=== PATIENT | male | born 1985 | race Caucasian/White ===

== ENCOUNTER 2019-09-23 19:45 | Inpatient (IN) | payer OTHER ==
[2019-09-23 20:10] VITALS: BMI 20.2
--- NOTE | 2019-09-23 20:32 | HP ---
COWS - Scale Resting Pulse: 0= [place] 80 or Below Sweatin=Flushed/Facial Moisture Restless Observation: 0= Sits Still Pupil Size: 0= Normal to Room Light Bone or Joint Aches: 4=Acute Joint/Muscle Pain Runny Nose/ Eye Tearin= Runny Nose/Eyes GI Upset > 30mins: 1= Stomach Cramp Tremor Observation: 2= Slight Tremor Visible Yawning Observation: 0= None Anxiety or Irritability: 2=Irritable/Anxious Goose Flesh Skin: 0=Smooth Skin COWS Score: 13 CIWA Score Nausea/Vomitin Muscle Tremors: 2 Anxiety: 3 Agitation: 2 Paroxysmal Sweats: 2 Orientation: 1-Uncertain about Date Tacttile Disturbances: 0-None Auditory Disturbances: 0-None Visual Disturbances: 0-None Headache: 2-Mild CIWA-Ar Total Score: 14 - Admission Criteria [facility] Guidelines: Admission for Medically Managed Detox: Requires at least one of the followin. CIWA greater than 12 2. Seizures within the past 24 hours 3. Delirium tremens within the past 24 hours 4. Hallucinations within the past 24 hours 5. Acute intervention needed for co occurring medical disorder 6. Acute intervention needed for co occurring psychiatric disorder 7. Severe withdrawal that cannot be handled at a lower level of care (continued vomiting, continued diarrhea, abnormal vital signs) requiring intravenous medication and/or fluids 8. Admission ROS [facility] - [facility] Chief Complaint: Seeking admission to detox from heroin Allergies/Adverse Reactions: Allergies Allergy/AdvReac Type Severity Reaction Status Date / Time No Known Allergies Allergy Verified 09/23/19 20:27 History of Present Illness: 34 years old male with 2 years of heroin dependence and 14 years of alcohol dependence is seeking admission to detox. This his first admission to [facility] and he his first detoxification. He uses 10 bags of heroin and 1 liter of Valerie / 2 bottles of 12oz. beer daily. He has medical history of heart murmur, scoliosis, denies psych. history and suicide attempt and suicidal ideation a this time. He is unemployed, lives with his mother and denies legal issues. He reports drug overdose in June 2019. Exam Limitations: No Limitations - Ebola screening Have you traveled outside of the country in the last 21 days: No Have you had contact with anyone from an Ebola affected area: No Have you been sick,other than usual withdrawal symptoms: No Do you have a fever: No - Review of Systems Constitutional: Chills, Malaise, Night Sweats, Changes in sleep EENT: reports: Nose Congestion Respiratory: reports: No Symptoms reported Cardiac: reports: No Symptoms Reported GI: reports: Nausea, Poor Appetite, Poor Fluid Intake, Abdominal cramping : reports: No Symptoms Reported Musculoskeletal: reports: Back Pain, Muscle Pain Integumentary: reports: Dryness, Flushing Neuro: reports: Tremors Endocrine: reports: No Symptoms Reported Hematology: reports: No Symptoms Reported Psychiatric: reports: Mood/Affect Appropiate, Anxious Other Systems: Reviewed and Negative Patient History - Patient Medical History Hx Anemia: No Hx Asthma: No Hx Chronic Obstructive Pulmonary Disease (COPD): No Hx Cardiac Disorders: Yes (Heart murmur) Hx Congestive Heart Failure: No Hx Hypertension: No Hx Hypercholesterolemia: No Hx Pacemaker: No HX Cerebrovascular Accident: No Hx Seizures: No Hx Diabetes: No Hx Gastrointestinal Disorders: No Hx Liver Disease: No Hx Genitourinary Disorders: No Hx Sexually Transmitted Disorders: No Hx Renal Disease (ESRD): No Hx Thyroid Disease: No Hx Human Immunodeficiency Virus (HIV): No (Negative 2020) Hx Hepatitis C: No Hx Depression: No Hx Suicide Attempt: No (Denies suicidal ideation at this tiome) Hx Bipolar Disorder: No Hx Schizophrenia: No - Patient Surgical History Past Surgical History: No - PPD History Previous Implant?: Yes Documented Results: Negative w/o proof Implanted On Prior [facility] Admission?: No PPD to be Administered?: Yes - Reproductive History Patient is a Female of Child Bearing Age (11 -55 yrs old): No (male) - Smoking Cessation Smoking history: Current every day smoker Have you smoked in the past 12 months: Yes Aproximately how many cigarettes per day: 20 Hx Chewing Tobacco Use: No Initiated information on smoking cessation: Yes 'Breaking Loose' booklet given: 09/23/19 - Substance & Tx. History Hx Alcohol Use: No Hx Substance Use: Yes Substance Use Type: Heroin Hx Substance Use Treatment: No - Substances abused Heroin Substance route: Oral Frequency: Daily Amount used: 10 bags of heroin Age of first use: 32 Date of last use: 09/23/19 Alcohol Substance route: Oral Frequency: Daily Amount used: 1 liter of Valerie and 2 bottles of 12 oz. beer Age of first use: 20 Date of last use: 09/23/19 Admission Physical Exam [facility] - Vital Signs Vital Signs: Vital Signs - 24 hr 09/23/19 20:09 Temperature 98.4 F Pulse Rate 68 Respiratory 18 Rate Blood Pressure 122/80 - Physical General Appearance: Yes: Moderate Distress, Tremorous, Irritable, Anxious HEENTM: Yes: Within Normal Limits Respiratory: Yes: Lungs Clear, Normal Breath Sounds, No Respiratory Distress Neck: Yes: Within Normal Limits Breast: Yes: Breast Exam Deferred Cardiology: Yes: Within Normal Limits Abdominal: Yes: Normal Bowel Sounds, Soft Genitourinary: Yes: Within Normal Limits Back: Yes: Normal Inspection Musculoskeletal: Yes: Within Normal Limits Extremities: Yes: Tremors Neurological: Yes: Within Normal Limits Integumentary: Yes: Warm Lymphatic: Yes: Within Normal Limits - Diagnostic (1) Opioid dependence with withdrawal Current Visit: Yes Status: Acute (2) Alcohol dependence with withdrawal, uncomplicated Current Visit: Yes Status: Acute (3) Nicotine dependence Current Visit: Yes Status: Acute (4) Heart murmur Current Visit: Yes Status: Chronic (5) Scoliosis Current Visit: Yes Status: Chronic Qualifiers: Scoliosis type: unspecified scoliosis Cleared for Admission [facility] - Detox or Rehab [facility] Level of Care: Medically Managed Detox Regimen/Protocol: Methadone/Librium Claeared for Rehab Admission: No Breathalyzer - Breathalyzer Breathalyzer: 0 Urine Drug Screen - Test Device Lot number: [id number] Expiration date: 03/15/21 - Control Is test valid?: Yes - Results Drug screen NEGATIVE: No Urine drug screen results: THC-Marijuana, BRADEN-Cocaine, FEN-Fentanyl, MOP-Opiates Inpatient Rehab Admission - Rehab Decision to Admit Inpatient rehab admission?: No
[2019-09-23] MEDS ORDERED: ACETAMINOPHEN 325 MG TABLET (FP) PO PRN ×2 (20:44)
[2019-09-23] MEDS ORDERED: MAGNESIUM HYDROX 2400MG/30ML ORAL SUSPENSION 30 ML CUP PO PRN (20:44)
[2019-09-23] MEDS ORDERED: MAG HYDROX/AL HYDROX/SIMETH 30 ML UNIT-DOSE CUP PO PRN (20:44)
[2019-09-23] MEDS ORDERED: MAGNESIUM CITRATE 300 ML BOTTLE PO PRN (20:44)
[2019-09-23] MEDS ORDERED: cloNIDine HCL 0.1 MG TABLET PO PRN (20:44)
[2019-09-23] MEDS ORDERED: chlordiazePOXIDE HCL 10 MG CAPSULE PO PRN (20:44)
[2019-09-23] MEDS ORDERED: BISMUTH SUBSALICYLATE 524 MG/30 ML UD PO PRN (20:44)
[2019-09-23] MEDS ORDERED: NICOTINE POLACRILEX 2 MG GUM BUC PRN (20:44)
[2019-09-23] MEDS ORDERED: METHOCARBAMOL 500 MG TABLET PO PRN (20:44)
[2019-09-23] MEDS ORDERED: MENTHOL/PHENOL 1 EACH UD MM PRN (20:44)
[2019-09-23] MEDS ORDERED: ONDANSETRON *ODT* 4 MG TABLET SL PRN (20:44)
[2019-09-23] MEDS ORDERED: IBUPROFEN 400 MG TABLET (FP) PO PRN (20:44)
[2019-09-23] MEDS ORDERED: METHADONE HCL 10 MG TABLET (FOR DETOX USE ONLY) PO ONE (21:45)
[2019-09-23] MEDS: chlordiazePOXIDE HCL 25 MG CAPSULE PO SCH (23:04)
[2019-09-23] MEDS: THIAMINE HCL 100 MG TABLET (FP) PO SCH (23:04)
[2019-09-23] MEDS: MELATONIN 5 MG TABLETS PO SCH (23:09)
[2019-09-24] MEDS: chlordiazePOXIDE HCL 25 MG CAPSULE PO SCH ×3 (05:19→21:56)
--- NOTE | 2019-09-24 09:24 | EKG ---
Test Reason : Blood Pressure : / mmHG Vent. Rate : 057 BPM Atrial Rate : 057 BPM P-R Int : 174 ms QRS Dur : 102 ms QT Int : 410 ms P-R-T Axes : 047 062 046 degrees QTc Int : 399 ms SINUS BRADYCARDIA OTHERWISE NORMAL ECG NO PREVIOUS ECGS AVAILABLE Confirmed by Parker Breaux MD ([id number]) on 09/24/2019 9:23:36 AM Referred By: WENDIE HUNTER Confirmed By:Parker Breaux MD
[2019-09-24] MEDS ORDERED: METHADONE HCL 5 MG TABLET (FOR DETOX USE ONLY) PO ONE (10:00)
[2019-09-24] MEDS: NICOTINE 21 MG/24 HOURS TOPICAL PATCH TD SCH (10:22)
[2019-09-24] MEDS: PRENATAL VITAMINS W/ FOLIC ACID TABLET (FP) PO SCH (10:22)
--- NOTE | 2019-09-24 11:33 | PN ---
S CIWA - CIWA Score Nausea/Vomitin Muscle Tremors: 2 Anxiety: 2 Agitation: 2 Paroxysmal Sweats: 1-Minimal Palms Moist Orientation: 0-Oriented Tacttile Disturbances: 1-Very Mild Itch/Numbness Auditory Disturbances: 0-None Visual Disturbances: 0-None Headache: 2-Mild CIWA-Ar Total Score: 12 [facility] COWS - Scale Resting Pulse: 0= [place] 80 or Below Sweatin= No chills or Flushing Restless Observation: 1= Difficult to Sit Still Pupil Size: 1= Pupils >than Normal Bone or Joint Aches: 2= Severe Diffuse Aches Runny Nose/ Eye Tearin= Nasal Congestion GI Upset > 30mins: 2= Nausea/Diarrhea Tremor Observation of Outstretched Hands: 2= Slight Tremor Visible Yawning Observation: 1= 1-2x During Session Anxiety or Irritability: 2=Irritable/Anxious Goose Flesh Skin: 0=Smooth Skin COWS Score: 12 S Progress Note (SOAP) Subjective: alert,irritable,anxious,interrupted sleep,tremor,pain in the body and back Objective: 09/24/19 11:32 Vital Signs Temperature 97.7 F 09/24/19 08:55 Pulse Rate 62 09/24/19 08:55 Respiratory Rate 18 09/24/19 08:55 Blood Pressure 112/63 09/24/19 08:55 O2 Sat by Pulse Oximetry (%) 99 09/24/19 06:16 09/24/19 11:33 labs pending Assessment: 09/24/19 11:33 withdrawal symptom Plan: continue detox methadone and librium regimen
[2019-09-24 12:18] LABS: HEMATOCRIT 38.1 % (35.4-49); HEMOGLOBIN 12.3 GM/dL (11.7-16.9); MCH 27.4 pg (25.7-33.7); MCHC 32.4 g/dl (32.0-35.9); MEAN CELL VOLUME 84.6 fl (80-96); MEAN PLT VOLUME 10.1 fl (7.5-11.1); PLATELET COUNT 164 K/MM3 (134-434); RDW 13.9 % (11.9-15.9); WHITE BLOOD COUNT 5.3 K/mm3 (4.0-10.0)
[2019-09-24 12:21] LABS: ALBUMIN 3.2 g/dl (3.4-5.0); CREATININE 0.9 mg/dL (0.55-1.3); TOT PROT 6.2 g/dl (6.4-8.2)
[2019-09-24 12:23] LABS: BILIRUBIN,TOTAL 0.6 mg/dL (0.2-1); BLOOD UREA NITROGEN 13.1 mg/dL (7-18); CALCIUM 8.8 mg/dL (8.5-10.1); POTASSIUM 3.9 mmol/L (3.5-5.1)
[2019-09-24] MEDS: THIAMINE HCL 100 MG TABLET (FP) PO SCH (21:56)
[2019-09-24] MEDS: MELATONIN 5 MG TABLETS PO SCH (21:57)
[2019-09-25] MEDS: chlordiazePOXIDE 5 MG CAPSULE PO SCH ×3 (05:19→22:26)
[2019-09-25] MEDS ORDERED: METHADONE HCL 10 MG TABLET (FOR DETOX USE ONLY) PO ONE (10:00)
[2019-09-25] MEDS: NICOTINE 21 MG/24 HOURS TOPICAL PATCH TD SCH (10:15)
[2019-09-25] MEDS: PRENATAL VITAMINS W/ FOLIC ACID TABLET (FP) PO SCH (10:15)
--- NOTE | 2019-09-25 12:09 | PN ---
[facility] CIWA - CIWA Score Nausea/Vomitin-Mild Nausea/No Vomiting Muscle Tremors: 2 Anxiety: 2 Agitation: 1-Slight > Activity Paroxysmal Sweats: No Perspiration Orientation: 0-Oriented Tacttile Disturbances: 0-None Auditory Disturbances: 0-None Visual Disturbances: 0-None Headache: 2-Mild CIWA-Ar Total Score: 8 [facility] COWS - Scale Resting Pulse: 0= [place] 80 or Below Sweatin= No chills or Flushing Restless Observation: 0= Sits Still Pupil Size: 1= Pupils >than Normal Bone or Joint Aches: 1= Mild Discomfort Runny Nose/ Eye Tearin= Nasal Congestion GI Upset > 30mins: 1= Stomach Cramp Tremor Observation of Outstretched Hands: 2= Slight Tremor Visible Yawning Observation: 0= None Anxiety or Irritability: 2=Irritable/Anxious Goose Flesh Skin: 0=Smooth Skin COWS Score: 8 [facility] Progress Note (SOAP) Subjective: alert,irritable,anxious,interrupted sleep,tremor,pain in the body and back Objective: 09/25/19 12:06 Vital Signs Temperature 98.0 F 09/25/19 08:24 Pulse Rate 49 L 09/25/19 08:24 Respiratory Rate 18 09/25/19 08:24 Blood Pressure 109/63 09/25/19 08:24 O2 Sat by Pulse Oximetry (%) 100 09/25/19 05:08 09/25/19 12:06 Laboratory Last Values WBC 5.3 K/mm3 (4.0-10.0) 09/24/19 08:30 RBC 4.50 M/mm3 (4.00-5.60) 09/24/19 08:30 Hgb 12.3 GM/dL (11.7-16.9) 09/24/19 08:30 Hct 38.1 % (35.4-49) 09/24/19 08:30 MCV 84.6 fl (80-96) 09/24/19 08:30 MCH 27.4 pg (25.7-33.7) 09/24/19 08:30 MCHC 32.4 g/dl (32.0-35.9) 09/24/19 08:30 RDW 13.9 % (11.9-15.9) 09/24/19 08:30 Plt Count 164 K/MM3 (134-434) 09/24/19 08:30 MPV 10.1 fl (7.5-11.1) 09/24/19 08:30 Sodium 143 mmol/L (136-145) 09/24/19 08:30 Potassium 3.9 mmol/L (3.5-5.1) 09/24/19 08:30 Chloride 108 mmol/L (98-107) H 09/24/19 08:30 Carbon Dioxide 28 mmol/L (21-32) 09/24/19 08:30 Anion Gap 6 MMOL/L (8-16) L 09/24/19 08:30 BUN 13.1 mg/dL (7-18) 09/24/19 08:30 Creatinine 0.9 mg/dL (0.55-1.3) 09/24/19 08:30 Est GFR (CKD-EPI)AfAm 130.52 09/24/19 08:30 Est GFR (CKD-EPI)NonAf 112.62 09/24/19 08:30 Random Glucose 81 mg/dL (74-106) 09/24/19 08:30 Calcium 8.8 mg/dL (8.5-10.1) 09/24/19 08:30 Total Bilirubin 0.6 mg/dL (0.2-1) 09/24/19 08:30 AST 151 U/L (15-37) H 09/24/19 08:30 ALT 287 U/L (13-61) H 09/24/19 08:30 Alkaline Phosphatase 116 U/L (45-117) 09/24/19 08:30 Total Protein 6.2 g/dl (6.4-8.2) L 09/24/19 08:30 Albumin 3.2 g/dl (3.4-5.0) L 09/24/19 08:30 Syphilis Serology Non-reactive (NONREACTIVE) 09/23/19 08:30 COVID-19 (FADI) Not detected (Not Detected) 09/23/19 22:00 Assessment: 09/25/19 12:08 withdrawal symptom Plan: continue detox methadone and librium regimen,repeat alt,ast,inr in am
[2019-09-25] MEDS: THIAMINE HCL 100 MG TABLET (FP) PO SCH (22:26)
[2019-09-25] MEDS: MELATONIN 5 MG TABLETS PO SCH (22:27)
[2019-09-26] MEDS ORDERED: chlordiazePOXIDE HCL 10 MG CAPSULE PO PRN
[2019-09-26] MEDS: chlordiazePOXIDE HCL 10 MG CAPSULE PO SCH ×2 (05:25→13:45)
[2019-09-26] MEDS ORDERED: METHADONE HCL 5 MG TABLET (FOR DETOX USE ONLY) PO ONE (06:00)
[2019-09-26] MEDS: PRENATAL VITAMINS W/ FOLIC ACID TABLET (FP) PO SCH (10:20)
[2019-09-26] MEDS: NICOTINE 21 MG/24 HOURS TOPICAL PATCH TD SCH (10:20)
[2019-09-26 10:23] LABS: SGOT/AST 245 U/L (15-37); SGPT/ALT 413 U/L (13-61)
[2019-09-26 10:25] LABS: INR 1.02 (0.83-1.09)
[2019-09-26 13:19] VITALS: BP 112/65; PULSE 67; TEMP 97.8
--- NOTE | 2019-09-26 13:59 | PN ---
[facility] CIWA - CIWA Score Nausea/Vomitin-No Nausea/No Vomiting Muscle Tremors: None Anxiety: 1-Mildly Anxious Agitation: 0-Normal Activity Paroxysmal Sweats: No Perspiration Orientation: 0-Oriented Tacttile Disturbances: 0-None Auditory Disturbances: 0-None Visual Disturbances: 0-None Headache: 0-None Present CIWA-Ar Total Score: 1 [facility] COWS - Scale Resting Pulse: 0= [place] 80 or Below Sweatin= No chills or Flushing Restless Observation: 0= Sits Still Pupil Size: 0= Normal to Room Light Bone or Joint Aches: 0= None Runny Nose/ Eye Tearin= None GI Upset > 30mins: 0= None Tremor Observation of Outstretched Hands: 0= None Yawning Observation: 0= None Anxiety or Irritability: 1=Feels Anxious/Irritable Goose Flesh Skin: 0=Smooth Skin COWS Score: 1 [facility] Progress Note (SOAP) Subjective: alert,no complaint Objective: 09/26/19 14:37 Vital Signs Temperature 97.8 F 09/26/19 12:43 Pulse Rate 67 09/26/19 12:43 Respiratory Rate 18 09/26/19 12:43 Blood Pressure 112/65 09/26/19 12:43 O2 Sat by Pulse Oximetry (%) 99 09/26/19 12:43 Assessment: 09/26/19 14:37 detox completed,no withdrawal symptom Plan: stable for discharge today,follow up with after care program methadone clinic at [facility], [place]
--- NOTE | 2019-09-26 14:51 | DS ---
[facility] Detox Discharge Summary Admission Date: 09/23/19 Discharge Date: 09/26/19 - History Present History: Alcohol Dependence, Opioid Dependence Additional Comments: alert,no complaint ambulation on the unit lung clear on auscultation bilaterally no abdominal pain no swelling of legs stable for discharge no withdrawal symptom declined rehab follow up with methadone clinic at [facility] total time spending on discharge 35 minutes Pertinent Past History: nicotine dependence scoliosis - Physical Exam Results Vital Signs: Vital Signs Temperature 97.8 F 09/26/19 12:43 Pulse Rate 67 09/26/19 12:43 Respiratory Rate 18 09/26/19 12:43 Blood Pressure 112/65 09/26/19 12:43 O2 Sat by Pulse Oximetry (%) 99 09/26/19 12:43 Pertinent Admission Physical Exam Findings: withdrawal signs and symptom Laboratory Last Values WBC 5.3 K/mm3 (4.0-10.0) 09/24/19 08:30 RBC 4.50 M/mm3 (4.00-5.60) 09/24/19 08:30 Hgb 12.3 GM/dL (11.7-16.9) 09/24/19 08:30 Hct 38.1 % (35.4-49) 09/24/19 08:30 MCV 84.6 fl (80-96) 09/24/19 08:30 MCH 27.4 pg (25.7-33.7) 09/24/19 08:30 MCHC 32.4 g/dl (32.0-35.9) 09/24/19 08:30 RDW 13.9 % (11.9-15.9) 09/24/19 08:30 Plt Count 164 K/MM3 (134-434) 09/24/19 08:30 MPV 10.1 fl (7.5-11.1) 09/24/19 08:30 PT with INR 12.00 SEC (9.7-13.0) 09/26/19 07:50 INR 1.02 (0.83-1.09) 09/26/19 07:50 Sodium 143 mmol/L (136-145) 09/24/19 08:30 Potassium 3.9 mmol/L (3.5-5.1) 09/24/19 08:30 Chloride 108 mmol/L (98-107) H 09/24/19 08:30 Carbon Dioxide 28 mmol/L (21-32) 09/24/19 08:30 Anion Gap 6 MMOL/L (8-16) L 09/24/19 08:30 BUN 13.1 mg/dL (7-18) 09/24/19 08:30 Creatinine 0.9 mg/dL (0.55-1.3) 09/24/19 08:30 Est GFR (CKD-EPI)AfAm 130.52 09/24/19 08:30 Est GFR (CKD-EPI)NonAf 112.62 09/24/19 08:30 Random Glucose 81 mg/dL (74-106) 09/24/19 08:30 Calcium 8.8 mg/dL (8.5-10.1) 09/24/19 08:30 Total Bilirubin 0.6 mg/dL (0.2-1) 09/24/19 08:30 AST 245 U/L (15-37) H 09/26/19 07:50 ALT 413 U/L (13-61) H 09/26/19 07:50 Alkaline Phosphatase 116 U/L (45-117) 09/24/19 08:30 Total Protein 6.2 g/dl (6.4-8.2) L 09/24/19 08:30 Albumin 3.2 g/dl (3.4-5.0) L 09/24/19 08:30 Syphilis Serology Non-reactive (NONREACTIVE) 09/23/19 08:30 COVID-19 (FADI) Not detected (Not Detected) 09/23/19 22:00 Vital Signs Temperature 97.8 F 09/26/19 12:43 Pulse Rate 67 09/26/19 12:43 Respiratory Rate 18 09/26/19 12:43 Blood Pressure 112/65 09/26/19 12:43 O2 Sat by Pulse Oximetry (%) 99 09/26/19 12:43 - Treatment Hospital Course: Detox Protocol Followed, Detoxed Safely, Responded well, Discharged Condition Good Patient has Accepted a Rehab Referral to: declined - Medication Discharge Medications: Ambulatory Orders NK [No Known Home Medication] 09/23/19 - Diagnosis (1) Opioid dependence with withdrawal Current Visit: Yes Status: Acute (2) Alcohol dependence with withdrawal, uncomplicated Current Visit: Yes Status: Acute (3) Nicotine dependence Current Visit: Yes Status: Acute (4) Scoliosis Current Visit: Yes Status: Chronic Qualifiers: Scoliosis type: unspecified scoliosis - AMA Did Patient Leave Against Medical Advice: No
[2019-09-27] MEDS ORDERED: chlordiazePOXIDE HCL 10 MG CAPSULE PO ONE (05:00)
== END 2019-09-26 14:53 | disposition home or self-care (01) | DRG 773 ==
LOC: YASAS 19:45 → Y6N 21:38
PROVIDERS: ADMIT Allergy & Immunology; ATTEND Allergy & Immunology
PROC: HZ2ZZZZ Detoxification Services for Substance Abuse Treatment (ICD-10-PCS; principal; 2019-09-23)
DX: F11.23 Opioid dependence with withdrawal (principal); F10.230 Alcohol dependence with withdrawal, uncomplicated; F17.210 Nicotine dependence, cigarettes, uncomplicated; M41.9 Scoliosis, unspecified; R01.1 Cardiac murmur, unspecified
CPT/HCPCS: 36415; 80053; 84450; 84460; 85027; 85610; 86780; 93005; 93010; U0003